=== PATIENT | female | born 1995 | race American Indian/Alaskan Native ===

== ENCOUNTER 2018-08-17 13:44 | Outpatient (CLI) | payer OTHER ==
[2018-08-17] MEDS ORDERED: PRENATAL VITAM1 EAC2 PO (18:26)
== END 2018-08-18 19:06 ==
LOC: OBS/DEL 13:44
DX: O13.3 Gestational [pregnancy-induced] hypertension without significant proteinuria, third trimester (principal); Z34.83 Encounter for supervision of other normal pregnancy, third trimester

== ENCOUNTER 2018-08-19 00:14 | Outpatient (CLI) | payer OTHER ==
[~2018-08-19 00:14] MED LIST: PRENATAL VITAM1 EAC2 PO
== END 2018-08-19 01:41 | disposition home or self-care (01) ==
LOC: NST 00:14
DX: Z34.83 Encounter for supervision of other normal pregnancy, third trimester (principal)

== ENCOUNTER 2018-09-07 18:24 | Inpatient (IN) | payer OTHER ==
[~2018-09-07] VITALS: Ht 162.6 cm; Wt 110.7 kg
== END 2018-09-10 13:37 | disposition home or self-care (01) | DRG 807 ==
LOC: OBS/DEL 18:24 → LDR 18:24 → OBS/DEL 18:29 → OB/GYN 22:14 → OBS/DEL 22:14 → LDR 22:14 → OB/GYN 09-08 18:15
PROVIDERS: ADMIT Specialist
PROC: 4A1HXCZ Monitoring of Products of Conception, Cardiac Rate, External Approach (ICD-10-PCS; 2018-09-07)
PROC: 10E0XZZ Delivery of Products of Conception, External Approach (ICD-10-PCS; principal; 2018-09-08)
PROC: 0UQGXZZ Repair Vagina, External Approach (ICD-10-PCS; 2018-09-08)
PROC: 4A033R1 Measurement of Arterial Saturation, Peripheral, Percutaneous Approach (ICD-10-PCS; 2018-09-08)
DX: O71.4 Obstetric high vaginal laceration alone (principal); Z37.0 Single live birth; Z3A.39 39 weeks gestation of pregnancy; Z22.330 Carrier of Group B streptococcus

== ENCOUNTER 2022-08-10 20:06 | Outpatient (CLI) | payer OTHER ==
[2022-08-10] MEDS ORDERED: ADULT LOW DOSE81 M1 PO (21:23)
[2022-08-10] MEDS ORDERED: IRON325 MG PO (21:23)
== END 2022-08-11 11:45 | disposition left against medical advice (07) ==
LOC: OBS/DEL 20:06
PROVIDERS: ATTEND Specialist
DX: O26.893 Other specified pregnancy related conditions, third trimester (principal); Z3A.38 38 weeks gestation of pregnancy; W19.XXXA Unspecified fall, initial encounter; Y93.89 Activity, other specified; Y92.89 Other specified places as the place of occurrence of the external cause; Y99.8 Other external cause status

== ENCOUNTER 2022-08-16 23:34 | Emergency (ER) | payer OTHER ==
[~2022-08-16] VITALS: Ht 162.6 cm; Wt 113.4 kg
[~2022-08-16 23:34] MED LIST changes: +ADULT LOW DOSE81 M1 PO; +IRON325 MG PO
== END 2022-08-17 01:16 | disposition home or self-care (01) ==
LOC: ER 23:34
DX: R20.2 Paresthesia of skin (principal)

== ENCOUNTER 2022-08-19 09:42 | Inpatient (IN) | payer OTHER ==
[~2022-08-19] VITALS: Ht 162.6 cm; Wt 113.4 kg
== END 2022-08-21 13:34 | disposition home or self-care (01) | DRG 807 ==
LOC: OB/GYN 09:42 → LDR 09:42 → OB/GYN 17:39
PROVIDERS: ADMIT Specialist; ATTEND Specialist
PROC: 10E0XZZ Delivery of Products of Conception, External Approach (ICD-10-PCS; principal; 2022-08-19)
PROC: 4A1HXCZ Monitoring of Products of Conception, Cardiac Rate, External Approach (ICD-10-PCS; 2022-08-19)
DX: O80 Encounter for full-term uncomplicated delivery (principal); Z37.0 Single live birth; Z3A.39 39 weeks gestation of pregnancy; Z20.822 Contact with and (suspected) exposure to COVID-19